=== PATIENT | female | born 1985 | race Caucasian/White ===

== ENCOUNTER → 2017-10-06 | Outpatient (CLI) | payer BC | LOC: BICULT 10:28 | PROVIDERS: ATTEND Surgery | DX: N63.20 Unspecified lump in the left breast, unspecified quadrant (principal) ==

== ENCOUNTER 2018-10-11 06:05 | Outpatient (CLI) | payer BC ==
[2018-10-11 09:19] LABS: BHCG - Serum Negative (NEGATIVE); Pregs Control Background? CLEAR/WHITE (CLR/WHITE); Pregs Control Bar Appear? YES (CONTROL BAR)
== END 2018-10-11 06:06 | disposition home or self-care (01) ==
LOC: LABBT 06:05
PROVIDERS: ATTEND Surgery
DX: Z01.812 Encounter for preprocedural laboratory examination (principal); N63.20 Unspecified lump in the left breast, unspecified quadrant
CPT/HCPCS: 84703

== ENCOUNTER 2018-10-17 09:57 | Day surgery (SDC) | payer BC ==
[2018-10-11 08:29] VITALS: BMI 21.9
[2018-10-17] MEDS ORDERED: Famotidine/PF 20 mg/2ml Vial ONE (10:41)
[2018-10-17] MEDS ORDERED: Fentanyl 100 MCG/2 ML VIAL ONE (10:41)
[2018-10-17] MEDS ORDERED: Bupivacaine/Epinephrine 0.25% 30 ML VIAL ONE (10:43)
[2018-10-17] MEDS ORDERED: Midazolam HCl 2 mg/2 ml Vial ONE (12:02)
[2018-10-17] MEDS ORDERED: ePHEDrine/0.9% NaCl/PF SYRINGE 50 mg/10 ml ONE (16:26)
[2018-10-17] MEDS ORDERED: Ondansetron PF 4 MG/2 ML Vial ONE (16:26)
[2018-10-17] MEDS ORDERED: Metoclopramide HCl 10 MG/2 ML VIAL ONE (16:26)
[2018-10-17] MEDS ORDERED: Ketorolac Tromethamine 30 MG/ML VIAL ONE (16:26)
[2018-10-17] MEDS ORDERED: PROPOFOL 200 MG/20 ML VIAL ONE (16:26)
[2018-10-17] MEDS ORDERED: Dexamethasone 20 MG/5 ML VIAL ONE (16:26)
[2018-10-17] MEDS ORDERED: Lidocaine 1% PF 5 ML VIAL ONE (16:26)
--- NOTE | 2018-10-18 13:11 | OP ---
DATE OF PROCEDURE: 10/17/2018 PROCEDURE PERFORMED: Excision of left breast mass. PREOPERATIVE DIAGNOSIS: Left breast mass. POSTOPERATIVE DIAGNOSIS: Left breast mass. 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 This is occult on ultrasound, but has been persistent on examination. A palpation-guided biopsy was benign, but the patient would like to have the mass excised for definitive diagnosis. DESCRIPTION OF PROCEDURE: After informed consent was obtained, the patient was taken to the operating room. She was placed in supine position and anesthesia was administered. She was prepped and draped in standard sterile fashion and local anesthesia infused through the skin and subcutaneous tissues surrounding the palpable mass at 4 o'clock. The periareolar incision was made and dissection carried down to the mass, which was excised with a rim of normal tissue. This was marked for orientation with a long lateral and short superior and loop superficial suture and sent to Pathology for final diagnosis. The biopsy cavity was irrigated and hemostasis verified. This was maintained throughout the case using electrocautery as necessary. The subcutaneous tissues were reapproximated with 3-0 Monocryl suture and the skin was closed with 4-0 Monocryl suture. Additional local anesthesia was infused circumferentially for postoperative pain management and a small amount of local anesthesia infused into the biopsy cavity as well. Dermabond dressings and fluff dressings were placed and the patient was taken to Recovery in good condition. ESTIMATED BLOOD LOSS: Minimal. COMPLICATIONS: There were no complications. SPECIMEN: Left breast mass at 4 o'clock. Job ID: [id number]
== END 2018-10-17 14:35 | disposition home or self-care (01) ==
LOC: SDC 09:57
PROVIDERS: ATTEND Surgery
PROC: 0HBU0ZZ Excision of Left Breast, Open Approach (ICD-10-PCS; principal; 2018-10-17)
DX: N60.82 Other benign mammary dysplasias of left breast (principal); Z88.0 Allergy status to penicillin; Z88.1 Allergy status to other antibiotic agents; Z88.5 Allergy status to narcotic agent; Z91.040 Latex allergy status
CPT/HCPCS: 88307; J0131; J1100; J1885; J2001; J2250; J2405; J2704; J2765; J3010; S0028

== ENCOUNTER 2024-02-23 11:52 | Outpatient (CLI) | payer BC | END 2024-02-23 11:53 | disposition home or self-care (01) | LOC: BICRAD 11:52 | PROVIDERS: ATTEND Nurse Practitioner Family | DX: M25.572 Pain in left ankle and joints of left foot (principal) ==